=== PATIENT | female | born 1975 | race Caucasian/White ===

== ENCOUNTER 2017-07-12 18:51 | Emergency (ER) | payer OTHER ==
[2017-07-12 19:05] VITALS: TEMP 97.5
--- NOTE | 2017-07-12 20:35 | ED PDOC ---
Arrival/HPI - General Chief Complaint: Syncope Time Seen by Provider: 07/12/17 19:10 Historian: Patient - History of Present Illness Narrative History of Present Illness (Text): 07/12/17 20:38 A 42 year old female presents to the emergency department after syncopal episode. Patient was found on the floor by family, unresponsive. In the emergency department, patient is alert, no signs of trauma. This has happened once before where she was completely unresponsive. No known medical issues. Patient is alert, non verbal appears to be looking around, protecting airway. No signs of substance abuse, trauma, nausea, vomiting. No other somatic complaints. Symptom Onset: Sudden Symptom Course: Improving Activities at Onset: Rest Context: Home Past Medical History - Provider Review Nursing Documentation Reviewed: Yes - Infectious Disease Hx of Infectious Diseases: None - Psychiatric Hx Substance Use: No Family/Social History - Physician Review Nursing Documentation Reviewed: Yes Family/Social History: No Known Family HX Smoking Status: Unknown If Ever Smoked Hx Alcohol Use: No Hx Substance Use: No Allergies/Home Meds Allergies/Adverse Reactions: Allergies Unobtainable Allergy (Verified 07/12/17 19:01) Review of Systems - Physician Review All systems were reviewed & negative as marked: Yes - Review of Systems Systems not reviewed;Unavailable: Uncooperative Cardiovascular: Syncope Physical Exam Vital Signs Reviewed: Yes Vital Signs Temp Pulse Resp BP Pulse Ox 07/12/17 23:20 79 18 134/71 96 07/12/17 18:58 97.5 F L 83 16 163/83 H 97 Temperature: Afebrile Blood Pressure: Hypertensive Pulse: Regular Respiratory Rate: Normal Appearance: Positive for: Well-Appearing, Non-Toxic, Comfortable Pain Distress: None Mental Status: Positive for: other (alert, following commands) - Systems Exam Head: Present: Atraumatic, Normocephalic Pupils: Present: PERRL Extroacular Muscles: Present: EOMI Conjunctiva: Present: Normal Mouth: Present: Moist Mucous Membranes Respiratory/Chest: Present: Clear to Auscultation, Good Air Exchange. No: Respiratory Distress, Accessory Muscle Use Cardiovascular: Present: Regular Rate and Rhythm, Normal S1, S2. No: Murmurs Abdomen: Present: Normal Bowel Sounds. No: Tenderness, Distention, Peritoneal Signs Upper Extremity: Present: Normal Inspection, Normal ROM, Other (good muscle tone and resist arm falling, protective reflexes). No: Cyanosis, Edema Lower Extremity: Present: Normal Inspection. No: Edema Neurological: Present: GCS=15, CN II-XII Intact, Speech Normal Skin: Present: Warm, Dry, Normal Color. No: Rashes Psychiatric: Present: Alert, Oriented x 3, Normal Insight Medical Decision Making ED Course and Treatment: 07/12/17 20:32 Impression: A 42 year old female with syncopal episode. Differential Diagnosis included but are not limited to: conversion disorder, anxiety disorder, psychiatric disorder r/o lockedin syndrome Plan: -- EKG -- chest xray -- CT head -- Ativan -- Reassess and disposition Progress Notes: - Lab Interpretations Lab Results: 07/12/17 20:08 07/12/17 20:08 Lab Results 07/12/17 21:10: Urine Opiates Screen Negative, Urine Methadone Screen Negative, Ur Barbiturates Screen Negative, Ur Phencyclidine Scrn Negative, Ur Amphetamines Screen Negative, U Benzodiazepines Scrn Negative, U Oth Cocaine Metabols Negative, U Cannabinoids Screen Negative 07/12/17 20:49: POC Glucose (mg/dL) 92 07/12/17 20:08: Beta HCG, Quant < 2.39, Alcohol, Quantitative < 10 07/12/17 20:08: Sodium 141, Potassium 4.3, Chloride 105, Carbon Dioxide 24, Anion Gap 15, BUN 10, Creatinine 0.6 L, Est GFR ( Amer) > 60, Est GFR ( Non-Af Amer) > 60, Random Glucose 99, Calcium 9.6 07/12/17 20:08: WBC 7.8, RBC 4.96, Hgb 12.4, Hct 37.9, MCV 76.4 L, MCH 25.0, MCHC 32.7, RDW 14.7 H, Plt Count 379, MPV 9.7, Gran % 60.7, Lymph % (Auto) 30.1 , [place] % (Auto) 7.7 H, Eos % (Auto) 1.2 L, Baso % (Auto) 0.3, Gran # 4.71, Lymph # 2.3, [place] # 0.6, Eos # 0.1, Baso # 0.02 I have reviewed the lab results: Yes - RAD Interpretation Radiology Orders: 07/12/17 20:10 HEAD W/O CONTRAST [CT] Stat - EKG Interpretation Interpreted by ED Physician: Yes Type: 12 lead EKG - Medication Orders Current Medication Orders: Discontinued Medications Lorazepam (Ativan) 1 mg IVP ONCE ONE PRN Reason: Protocol Stop: 07/12/17 19:50 Last Admin: 07/12/17 23:11 Dose: Not Given Non-Admin Reason: Patient Refused - Scribe Statement The provider has reviewed the documentation as recorded by the Haydee Klein Provider Scribe Attestation: All medical record entries made by the Scribe were at my direction and personally dictated by me. I have reviewed the chart and agree that the record accurately reflects my personal performance of the history, physical exam, medical decision making, and the department course for this patient. I have also personally directed, reviewed, and agree with the discharge instructions and disposition. Disposition/Present on Arrival - Present on Arrival Any Indicators Present on Arrival: No History of DVT/PE: No History of Uncontrolled Diabetes: No Urinary Catheter: No History of Decub. Ulcer: No History Surgical Site Infection Following: None - Disposition Have Diagnosis and Disposition been Completed?: Yes Diagnosis: Conversion disorder, Anxiety Disposition: HOME/ ROUTINE Disposition Time: 23:08 Patient Plan: Discharge Condition: IMPROVED Discharge Instructions (ExitCare): Generalized Anxiety Disorder (ED) Additional Instructions: followup with a neurologist to be sure there are no seizures. Prescriptions: Lorazepam [Ativan] 0.5 mg PO Q8 PRN #12 tab PRN Reason: Anxiety Referrals: [facility] [place] [Outside] - Follow up with primary Almas Rice MD [Non-Staff] - Follow up with primary PCP,NO [Primary Care Provider] - Follow up with primary Forms: [employer] (Grenadian)
[2017-07-12 20:40] LABS: BASO # 0.02 K/mm3 (0.0-2.0); BASO % 0.3 % (0.0-3.0); EOS # 0.1 (0.0-0.7); EOS % 1.2 % (1.5-5.0); GRAN # 4.71 (1.4-6.5); GRAN % 60.7 % (50.0-68.0); HEMATOCRIT 37.9 % (36.0-48.0); LYMPH # 2.3 (1.2-3.4); LYMPH % 30.1 % (22.0-35.0); MEAN CELL VOLUME 76.4 fl (80.0-105.0); MEAN CORPUSCULAR HGB CONC 32.7 g/dl (31.0-37.0); MEAN PLATELET VOLUME 9.7 fl (7.0-11.0); MONO # 0.6 (0.1-0.6); MONO % 7.7 % (1.0-6.0); RED CELL DISTRIBUTION WIDTH 14.7 % (11.5-14.5); WHITE BLOOD COUNT 7.8 10^3/ul (4.5-11.0)
[2017-07-12 20:41] LABS: ALCOHOL SERUM < 10 mg/dL (0-10)
[2017-07-12 20:42] LABS: BLOOD UREA NITROGEN 10 mg/dL (7-21); CALCIUM 9.6 mg/dL (8.4-10.5); CARBON DIOXIDE 24 mmol/L (21-33); CHLORIDE 105 mmol/L (98-107); GFR AFRICAN-AMERICAN > 60; GLUCOSE,RANDOM 99 mg/dL (70-110); POTASSIUM 4.3 mmol/L (3.6-5.0); SODIUM 141 mmol/L (132-148)
--- NOTE | 2017-07-12 22:26 | CT ---
EXAM: CT Head Without Intravenous Contrast EXAM DATE/TIME: 07/12/2017 8:10 PM CLINICAL HISTORY: 42 years old, female; Signs and symptoms; Altered mental status/memory loss; Confusion or disorientation TECHNIQUE: Axial computed tomography images of the head/brain without intravenous contrast. All CT scans at this facility use one or more dose reduction techniques, viz.: automated exposure control; ma/kV adjustment per patient size (including targeted exams where dose is matched to indication; i.e. head); or iterative reconstruction technique. COMPARISON: No relevant prior studies available. FINDINGS: No intracranial hemorrhage. No intracranial edema. No evidence of infarct. The sinuses and mastoid air cells are clear. IMPRESSION: No acute findings.
[2017-07-12 23:21] VITALS: BP 134/71; PULSE 79; RESP 18; O2SAT 96
--- NOTE | 2017-07-13 23:23 | CARD ---
APPROVED REPORT EKG Measurement Heart [id number] <Conclusion> Sinus rhythm with fusion complexes ST abnormality, possible digitalis effect Abnormal ECG
== END 2017-07-12 23:16 | disposition home or self-care (01) ==
LOC: ED 18:51
DX: F44.9 Dissociative and conversion disorder, unspecified (principal); F41.1 Generalized anxiety disorder

== ENCOUNTER 2019-01-09 22:38 | Emergency (ER) | payer MEDICAID, OTHER ==
[2019-01-09 22:53] VITALS: TEMP 97.8
[2019-01-09] MEDS ORDERED: Sodium Chloride 0.9% 1,000 ML IV STA (23:12)
--- NOTE | 2019-01-09 23:43 | ED PDOC ---
Arrival/HPI - General Chief Complaint: Headache Time Seen by Provider: 01/09/19 22:43 Historian: Patient, Family - History of Present Illness Narrative History of Present Illness (Text): 01/09/19 23:16 A 43 year old female presents to the emergency department complaining of headache for 1 hour. Per family, patient states headache is all around her head. Family notes patient told them she became dizzy and had fallen, however obtained no injuries. It is mentioned patient has a history of psychological state. She was last seen here in the ER 2 years ago for similar complaint. 01/10/19 02:41 Past Medical History - Provider Review Nursing Documentation Reviewed: Yes - Infectious Disease Hx of Infectious Diseases: None - Cardiac Hx Cardiac Disorders: No - Pulmonary Hx Respiratory Disorders: No - Psychiatric Hx Substance Use: No - Anesthesia Hx Anesthesia: No Family/Social History - Physician Review Nursing Documentation Reviewed: Yes Family/Social History: No Known Family HX Smoking Status: Never Smoked Hx Alcohol Use: No Hx Substance Use: No Allergies/Home Meds Allergies/Adverse Reactions: Allergies No Known Allergies Allergy (Verified 01/09/19 22:51) Home Medications: Home Meds Medication Instructions Recorded Confirmed No Known Home Med 01/09/19 01/09/19 Review of Systems - Physician Review All systems were reviewed & negative as marked: Yes - Review of Systems Constitutional: absent: Other (no injuries obtained from patient's fall) Cardiovascular: Syncope Neurological: Headache, Dizziness Physical Exam - Physical Exam Narrative Physical Exam (Text): Gen: VS reviewed, alert, well developed, well nourished, nontoxic, mild distress Eye: EOMI, PERRL ENT: normal pharynx. Neck: no JVD, supple, no adenopathy CV: regular rate, regular rhythm, no rubs,no murmur, S1, S2 Pulm: no distress, clear to auscultation, no wheeze, no rhonchi, breath sounds equal, no rales Abd: soft, nontender, no guarding, no rebound, no rigidity Ext: no edema Skin: good color, no rash, no cyanosis Psych: responds appropriately to questions, flat affect Neuro: oriented x3, CN2-12 intact grossly, motor intact, sensation intact Vital Signs Reviewed: Yes Vital Signs Temp Pulse Resp BP Pulse Ox 01/09/19 22:53 97.8 F 79 18 140/77 97 Temperature: Afebrile Blood Pressure: Normal Pulse: Regular Respiratory Rate: Normal Appearance: Positive for: Well-Appearing, Non-Toxic, Comfortable Pain Distress: None Mental Status: Positive for: Alert and Oriented X 3 Medical Decision Making ED Course and Treatment: 01/09/19 23:30 Impression: 43 year old female with headache and dizziness Plan: EKG Head CT CXR Labs Reglan Tylenol IV Fluids POC Urine Test Urinalysis Reassess and disposition Progress Notes: 01/10/19 02:03 Patient states she is feeling much better and that her headache has resolved. - RAD Interpretation Narrative RAD Interpretations (Text): 01/10/2019 02:[address] IMPRESSION: Normal unenhanced CT scan of the brain. Dictator: Abel Justice MD Radiology Orders: 01/09/19 23:12 HEAD W/O CONTRAST [CT] Stat CHEST ONE VIEW [RAD] Stat - Medication Orders Current Medication Orders: Sodium Chloride (Sodium Chloride 0.9%) 1,000 mls @ 999 mls/hr IV .Q1H1M STA Stop: 01/10/19 00:12 Discontinued Medications Acetaminophen (Tylenol 325mg Tab) 975 mg PO STAT STA Stop: 01/09/19 23:14 Metoclopramide HCl (Reglan) 10 mg IVP STAT STA Stop: 01/09/19 23:14 - Scribe Statement The provider has reviewed the documentation as recorded by the Scribe Emma Reyes All medical record entries made by the Scribe were at my direction and personally dictated by me. I have reviewed the chart and agree that the record accurately reflects my personal performance of the history, physical exam, medical decision making, and the department course for this patient. I have also personally directed, reviewed, and agree with the discharge instructions and disposition. Disposition/Present on Arrival - Present on Arrival Any Indicators Present on Arrival: No History of DVT/PE: No History of Uncontrolled Diabetes: No Urinary Catheter: No History of Decub. Ulcer: No History Surgical Site Infection Following: None - Disposition Have Diagnosis and Disposition been Completed?: Yes Diagnosis: Headache Disposition: HOME/ ROUTINE Disposition Time: 02:41 Patient Plan: Discharge Condition: STABLE Discharge Instructions (ExitCare): Headache, Adult (DC) Additional Instructions: you must follow up with your primary care doctor. return for any new or worsening symptoms. Referrals: [facility] [Outside] - Follow up with primary Forms: [employer] (Hungarian)
[2019-01-10 00:18] LABS: ACETAMINOPHEN < 10.0 ug/ml (10.0-20.0); BASO # 0.06 K/mm3 (0.0-2.0); BASO % 0.9 % (0.0-3.0); EOS # 0.3 (0.0-0.7); EOS % 4.9 % (1.5-5.0); HEMOGLOBIN 11.2 g/dL (12.0-16.0); LYMPH # 2.4 (1.2-3.4); LYMPH % 35.8 % (22.0-35.0); MEAN CELL VOLUME 77.1 fl (80.0-105.0); MEAN CORPUSCULAR HEMOGLOBIN 24.7 pg (25.0-35.0); MEAN PLATELET VOLUME 9.3 fl (7.0-11.0); MONO # 0.4 (0.1-0.6); MONO % 6.5 % (1.0-6.0); RBC 4.54 10^6/uL (3.5-6.1); RED CELL DISTRIBUTION WIDTH 14.6 % (11.5-14.5); SALICYLATE < 1 mg/dL (2.0-20.0); WHITE BLOOD COUNT 6.6 10^3/uL (4.5-11.0)
[2019-01-10 00:20] LABS: ALB/GLOB RATIO 1.1 (1.1-1.8); ALBUMIN 3.9 g/dL (3.0-4.8); ALT/SGPT 23 U/L (7-56); AST/SGOT 20 U/L (14-36); BLOOD UREA NITROGEN 13 mg/dL (7-21); CALCIUM 9.2 mg/dL (8.4-10.5); GFR NON-AFRICAN AMERICAN > 60
[2019-01-10 04:04] VITALS: BP 127/71; PULSE 72; RESP 16; O2SAT 99
--- NOTE | 2019-01-10 09:07 | CT ---
Date of service: 01/10/2019 PROCEDURE: CT HEAD WITHOUT CONTRAST. HISTORY: headache COMPARISON: 06/11/2017 TECHNIQUE: Axial computed tomography images were obtained through the head/brain without intravenous contrast. Radiation dose: Total exam DLP = 833.7 mGy-cm. This CT exam was performed using one or more of the following dose reduction techniques: Automated exposure control, adjustment of the mA and/or kV according to patient size, and/or use of iterative reconstruction technique. FINDINGS: HEMORRHAGE: No intracranial hemorrhage. BRAIN: No mass effect or edema. No atrophy or chronic microvascular ischemic changes. VENTRICLES: Unremarkable. No hydrocephalus. CALVARIUM: Unremarkable. PARANASAL SINUSES: Unremarkable as visualized. No significant inflammatory changes. MASTOID AIR CELLS: Unremarkable as visualized. No inflammatory changes. OTHER FINDINGS: The report concurs with the preliminary [facility] report IMPRESSION: Normal CT of the Head.
== END 2019-01-10 02:50 | disposition home or self-care (01) ==
LOC: ED 22:38
DX: R51 Headache (principal)